=== PATIENT | male | born 1955 | race Hispanic/Latino ===

== ENCOUNTER 2024-02-12 19:04 | Emergency (ER) | payer BC, OTHER, SELFPAY ==
[2024-02-12] MEDS ORDERED: ASPIRIN 81 MG CHEWABLE TABLET ONE (19:46)
[2024-02-12 19:54] LABS: Absolute Eosinophils 0.1 K/uL (0-0.5); Absolute Lymphocytes (CBC) 2.2 K/uL (0.7-4.9); Absolute Monocytes 0.6 K/uL (0.1-1.3); Basophils % 0.4 % (0-1.3); Eosinophils % 1.7 % (0-4.4); Hematocrit 43.4 % (39.6-49.0); Hemoglobin 14.8 g/dL (13.6-17.9); Lymphocytes % 27.5 % (15.3-44.8); MCH 32.4 pg (27.0-35.0); MCHC 34.1 g/dL (32.0-36.0); MCV 94.9 fL (80-100); MPV 8.7 fL (7.6-11.3); Monocytes % 7.3 % (3.3-12.3); Neutrophils % 63.1 % (41.7-73.7); Nucleated Red Blood Cells % 0.1 % (0-0); Platelets 198 thou/uL (152-406); RBC Red Blood Cell Count 4.57 M/uL (4.33-5.43); Red Cell Distribution Width 12.8 % (12.1-15.2)
[2024-02-12 19:57] LABS: PT Prothrombin Time 11.8 SECONDS (9.4-12.5); Protime INR 1.06
[2024-02-12 20:08] LABS: D-Dimer < 0.215 FEUug/mL (0-0.500)
[2024-02-12 20:14] LABS: Albumin 3.9 g/dL (3.4-5.0); Anion Gap 9.9 mEq/L (5.0-15.0); Bilirubin Direct 0.2 mg/dL (0-0.2); Bilirubin Indirect, Calculated 0.4 mg/dL (0.2-0.8); Bilirubin Total 0.6 mg/dL (0.2-1.0); Globulin 4.1 g/dL (2.3-3.5); Magnesium 2.3 mg/dL (1.6-2.4); Potassium 3.9 mEq/L (3.5-5.1); Troponin High Sensitivity 4.1 pg/mL (<58.9)
--- NOTE | 2024-02-12 20:23 | RAD REPORT ---
Procedure: Chest Single View History: sob Comparison: none The lungs appear clear of acute infiltrate. No significant pleural effusion noted. The heart is normal size. IMPRESSION: No acute abnormality is displayed.
--- NOTE | 2024-02-12 22:24 | RAD REPORT ---
Chest Angio History: EXAM: CT CHEST WITH CONTRAST CLINICAL INDICATION: Chest pain TECHNIQUE: CT angiogram images of the chest obtained. 100 cc 370 administered intravenously.. One or more of the following dose reduction techniques were used: Automated exposure control, adjustment of the mA and/or kV according to patient size, and/or iterative reconstruction. 3-Dmip reconstruction performed COMPARISON: No prior exam. FINDINGS: A pulmonary embolus is not seen. No thoracic aortic aneurysm. The pleural effusion not present. No pericardial effusion. Clear lungs IMPRESSION: Negative for a pulmonary embolus
[2024-02-12] MEDS ORDERED: LIDOCAINE VISCOUS 2% 10ML ORAL SOLN ONE (23:00)
[2024-02-12] MEDS ORDERED: MAGNES/ALUMIN/SIMET 30ML UCUP ONE (23:00)
[2024-02-12] MEDS ORDERED: FAMOTIDINE 20 MG/2 ML VIAL IV ONE (23:01)
--- NOTE | 2024-02-12 23:38 | ER ---
Nurse's Notes [facility] Name: Gio Bowie Age: 68 yrs Sex: Male : 1955 Arrival Date: 02/12/2024 Time: 19:04 Bed 6 Private MD: Diagnosis: Chest pain, unspecified Presentation: 02/11 19:16 Chief complaint: Patient states: chest tightness starting two hours ago. Hard to get a tm6 deep breath. Left shoulder in pain. Took 325mg aspirin prior to leaving home. Coronavirus screen: Vaccine status: Patient reports being unvaccinated. Ebola Screen: Patient negative for fever greater than or equal to 101.5 degrees Fahrenheit, and additional compatible Ebola Virus Disease symptoms Patient denies exposure to infectious person. Patient denies travel to an Ebola-affected area in the 21 days before illness onset. No symptoms or risks identified at this time. Initial Sepsis Screen: Does the patient meet any 2 criteria? No. Patient's initial sepsis screen is negative. Does the patient have a suspected source of infection? No. Patient's initial sepsis screen is negative. Risk Assessment: Do you want to hurt yourself or someone else? Patient reports no desire to harm self or others. Onset of symptoms was February 12, 2024 at 17:00. 19:16 Method Of Arrival: Ambulatory tm6 19:16 Acuity: AMIRA 3 tm6 Triage Assessment: 19:19 General: Appears in no apparent distress. Behavior is calm, cooperative. Pain: tm6 Complains of pain in left supraclavicular area and mid-sternal area Pain began 2 hours ago. EENT: No signs and/or symptoms were reported regarding the EENT system. Neuro: Level of Consciousness is awake, alert, obeys commands, Oriented to person, place, time, situation. Cardiovascular: Patient's skin is warm and dry. Rhythm is sinus rhythm Chest pain. Respiratory: Reports shortness of breath Airway is patent Respiratory effort is even, unlabored, Respiratory pattern is regular, symmetrical. GI: No signs and/or symptoms were reported involving the gastrointestinal system. Abdomen is flat, non-distended. : No signs and/or symptoms were reported regarding the genitourinary system. Derm: No signs and/or symptoms reported regarding the dermatologic system. Musculoskeletal: No signs and/or symptoms reported regarding the musculoskeletal system. Historical: - Allergies: 19:19 No Known Allergies; tm6 - PMHx: 19:19 None; tm6 - PSHx: 19:19 None; tm6 - Immunization history:: Client reports having NOT received the Covid vaccine. - Infectious Disease History:: Denies. - Social history:: Smoking status: Reported history of juuling and/or vaping. Screenin:34 [facility] ED Fall Risk Assessment (Adult) History of falling in the last 3 months, al5 including since admission No falls in past 3 months (0 pts) Confusion or Disorientation No (0 pts) Intoxicated or Sedated No (0 pts) Impaired Gait No (0 pts) Mobility Assist Device Used No (0 pt) Altered Elimination No (0 pt) Score/Fall Risk Level 0 - 2 = Low Risk Oriented to surroundings, Maintained a safe environment, Hourly rounding (assess needs \T\ fall precautionary measures) done. Abuse screen: Denies threats or abuse. Denies injuries from another. Nutritional screening: No deficits noted. Tuberculosis screening: No symptoms or risk factors identified. Assessment: 19:35 General: Appears in no apparent distress. Behavior is calm, cooperative. Pain: Denies al5 pain. Pain radiates to left supraclavicular area, neck Pain currently is 1 out of 10 on a pain scale. Neuro: Level of Consciousness is awake, alert, obeys commands, Oriented to person, place, time, situation. Cardiovascular: Reports chest tightness initially, denies it at this time. Respiratory: Reports shortness of breath initally, denies shortness of breath now. Airway is patent Respiratory effort is even, unlabored, Respiratory pattern is regular, symmetrical. GI: No signs and/or symptoms were reported involving the gastrointestinal system. : No signs and/or symptoms were reported regarding the genitourinary system. EENT: No signs and/or symptoms were reported regarding the EENT system. Derm: Skin is intact, Skin is pink, warm \T\ dry. normal. Musculoskeletal: No signs and/or symptoms reported regarding the musculoskeletal system. 20:50 Reassessment: Patient appears in no apparent distress at this time. No changes from al5 previously documented assessment. Patient and/or family updated on plan of care and expected duration. Pain level reassessed. Patient is alert, oriented x 3, equal unlabored respirations, skin warm/dry/pink. 21:55 Reassessment: Patient appears in no apparent distress at this time. No changes from al5 previously documented assessment. Patient and/or family updated on plan of care and expected duration. Pain level reassessed. Patient is alert, oriented x 3, equal unlabored respirations, skin warm/dry/pink. denies pain at this time.. 22:50 Reassessment: Patient and/or family updated on plan of care and expected duration. Pain ha1 level reassessed. Patient is alert, oriented x 3, equal unlabored respirations, skin warm/dry/pink. 23:54 Reassessment: Patient and/or family updated on plan of care and expected duration. Pain ha1 level reassessed. Patient is alert, oriented x 3, equal unlabored respirations, skin warm/dry/pink. Patient denies pain at this time. Patient states feeling better. Patient states symptoms have improved. Vital Signs: 19:16 BP 156 / 73; Pulse 65; Resp 18; Temp 99(O); Pulse Ox 100% on R/A; Weight 63.5 kg; tm6 Height 5 ft. 11 in. ; Pain 5/10; 19:36 BP 176 / 98; Pulse 79; Resp 16; Pulse Ox 99% on R/A; al5 20:12 BP 144 / 76; Pulse 70; Resp 16; Pulse Ox 99% ; Pain 2/10; dd2 20:55 BP 131 / 79; Pulse 66; Resp 17 S; Pulse Ox 99% on R/A; ha1 21:30 BP 143 / 84; Pulse 62; Resp 16; Pulse Ox 100% on R/A; al5 22:50 BP 140 / 90; Pulse 68; Resp 17 S; Pulse Ox 100% on R/A; ha1 23:54 BP 132 / 74; Pulse 75; Resp 17 S; Temp 97.8(O); Pulse Ox 98% on R/A; ha1 19:16 Body Mass Index 19.53 (63.50 kg, 180.34 cm) tm6 19:16 Pain Scale: Adult tm6 20:12 Pain Scale: Adult dd2 ED Course: 19:07 Patient arrived in ED. gm2 19:16 EKG completed in triage. Results shown to MD. tm6 19:16 Arm band placed on right wrist. tm6 19:16 Patient has correct armband on for positive identification. Bed in low position. Call al5 light in reach. Side rails up X 1. Provided Education on: processes and procedures. Client placed on continuous cardiac and pulse oximetry monitoring. NIBP monitoring applied. senior software engineering manager on. 19:19 Triage completed. tm6 19:24 Stanislaw Cornelius PA is PHCP. cp 19:24 Stanislaw Hubbard MD is Attending Physician. cp 19:34 Darline Lee, ALEX is Primary Nurse. al5 19:35 No provider procedures requiring assistance completed. Inserted saline lock: 20 gauge al5 in right antecubital area, using aseptic technique. Patient maintains SpO2 saturation greater than 95% on room air. 20:07 XRAY Chest (1 view) In Process Unspecified. EDMS 22:01 CT Chest Angio In Process Unspecified. EDMS 23:05 Troponin HS Sent. ha1 23:37 Wai Pena MD is Referral Physician. cp 23:57 IV discontinued, intact, bleeding controlled, No redness/swelling at site. Pressure ha1 dressing applied. Administered Medications: 19:49 Not Given (it was administered at home 1 hour agoo): aspirinchewable tablet 324 mg PO ha1 once; 81 mg tablets x 4 23:06 Drug: Famotidine IVP 20 mg IVP once; dilute with 10 mL 0.9% NaCl; give over 2 minutes ha1 Route: IVP; Site: right antecubital; 23:30 Follow up: Response: No adverse reaction; Marked relief of symptoms ha1 23:06 Drug: GI Cocktail without - (Maalox PO 30 ml, Lidocaine Mucous Membrane 2 % 15 ha1 ml) PO once Route: PO; 23:30 Follow up: Response: No adverse reaction; Marked relief of symptoms ha1 Medication: 19:35 VIS not applicable for this client. al5 Outcome: 23:38 Discharge ordered by . cp 23:57 Discharged to home ambulatory, with family, ha1 23:57 Condition: stable 23:57 Discharge instructions given to patient, family, Instructed on discharge instructions, follow up and referral plans. medication usage, Demonstrated understanding of instructions, follow-up care, medications, Prescriptions given X 1, 23:57 Patient left the ED. ha1 Signatures: Dispatcher [employer] EDMS Page, GINNY Dover cp, Heidy, RN RN ha1 Priyanka Vaughn gm2 Yi Lipscomb, RN RN tm6 Darline Lee RN RN al5 CALEB REVELES RN RN dd2
--- NOTE | 2024-02-12 23:38 | EDPHYS ---
Physician Documentation [facility] Name: Gio Bowie Age: 68 yrs Sex: Male : 1955 Arrival Date: 02/12/2024 Time: 19:04 Bed 6 Private MD: ED Physician Stanislaw Hubbard HPI: 02/11 19:30 This 68 yrs old Male presents to ER via Ambulatory with complaints of Chest cp Tightness. 19:30 Onset: 2 hour(s) ago. The chest pain is described as discomfort. Duration: The patient cp or guardian reports a single episode, markedly improved. 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 cp Historical: - Allergies: 19:19 No Known Allergies; tm6 - PMHx: 19:19 None; tm6 - PSHx: 19:19 None; tm6 - Immunization history:: Client reports having NOT received the Covid vaccine. - Infectious Disease History:: Denies. - Social history:: Smoking status: Reported history of juuling and/or vaping. ROS: 19:30 Constitutional: Negative for body aches, chills, fever, poor PO intake, cp 19:30 Eyes: Negative for injury, pain, redness, and discharge, cp 19:30 Respiratory: Negative for cough, shortness of breath, wheezing, 19:30 Abdomen/GI: Negative for abdominal pain, vomiting, diarrhea, constipation, Exam: 19:30 ECG was reviewed by the Attending Physician. cp 19:35 Constitutional: The patient appears in no acute distress, alert, awake, cp non-diaphoretic, non-toxic, well developed, well nourished, 19:35 Head/Face: Normocephalic, atraumatic. cp 19:35 Eyes: Periorbital structures: appear normal, Conjunctiva: normal, no exudate, no injection, Sclera: no appreciated abnormality, Lids and lashes: appear normal, bilaterally, 19:35 ENT: External ear(s): are unremarkable, Nose: is normal, Mouth: Lips: moist, Oral mucosa: moist, Posterior pharynx: Airway: no evidence of obstruction, patent, 19:35 Neck: ROM/movement: pain, is not appreciated, limited range of motion, is not appreciated, Meningeal signs: are not present, 19:35 Chest/axilla: Inspection: normal, 19:35 Cardiovascular: Rate: normal, Rhythm: regular, Edema: is not appreciated, JVD: is not appreciated, 19:35 Respiratory: the patient does not display signs of respiratory distress, Respirations: normal, no use of accessory muscles, no retractions, labored breathing, is not present, Breath sounds: are clear throughout, no decreased breath sounds, no stridor, no wheezing, 19:35 Abdomen/GI: Inspection: abdomen appears normal, Palpation: abdomen is soft and non-tender, in all quadrants, 19:35 Back: pain, is absent, ROM is normal, 19:35 Neuro: Orientation: to person, place \T\ time. Mentation: is normal, Motor: moves all fours, strength is normal, Sensation: is normal, 23:02 ECG was reviewed by the Attending Physician. Vital Signs: 19:16 BP 156 / 73; Pulse 65; Resp 18; Temp 99(O); Pulse Ox 100% on R/A; Weight 63.5 kg; tm6 Height 5 ft. 11 in. ; Pain 5/10; 19:36 BP 176 / 98; Pulse 79; Resp 16; Pulse Ox 99% on R/A; al5 20:12 BP 144 / 76; Pulse 70; Resp 16; Pulse Ox 99% ; Pain 2/10; dd2 20:55 BP 131 / 79; Pulse 66; Resp 17 S; Pulse Ox 99% on R/A; ha1 21:30 BP 143 / 84; Pulse 62; Resp 16; Pulse Ox 100% on R/A; al5 22:50 BP 140 / 90; Pulse 68; Resp 17 S; Pulse Ox 100% on R/A; ha1 23:54 BP 132 / 74; Pulse 75; Resp 17 S; Temp 97.8(O); Pulse Ox 98% on R/A; ha1 19:16 Body Mass Index 19.53 (63.50 kg, 180.34 cm) tm6 19:16 Pain Scale: Adult tm6 20:12 Pain Scale: Adult dd2 MDM: 19:24 Patient medically screened. cp 23:37 Data reviewed: vital signs, nurses notes, lab test result(s), EKG, radiologic studies, cp CT scan, plain films. 23:37 Differential diagnosis: acute myocardial infarction, gastroesophageal reflux disease cp (GERD), pleurisy, pneumonia, pneumothorax, pulmonary embolus, stable angina, thoracic aortic disection, unstable angina. The patient was given aspirin in the Emergency Department. Consideration of Admission/Observation Escalation of care including admission/observation considered. I considered the following discharge prescriptions or medication management in the emergency department Medications were administered in the Emergency Department. See MAR. Independent interpretation of the following test(s) in the Emergency Department EKG: See my EKG interpretation above. Counseling: I had a detailed discussion with the patient and/or guardian regarding the historical points, exam findings, and any diagnostic results supporting the discharge/admit diagnosis, lab results, radiology results, the need for outpatient follow up, a reefer truck driver, to return to the emergency department if symptoms worsen or persist or if there are any questions or concerns that arise at home. Response to treatment: the patient's symptoms have markedly improved after treatment, and as a result, I will discharge patient. 02/11 19:42 Order name: Basic Metabolic Panel; Complete Time: 20:32 cp 02/11 20:32 Interpretation: Normal except: GLUC 148; BUN 22; GFR 86. cp 02/11 19:42 Order name: CBC with Diff; Complete Time: 20:32 cp 18 19:42 Order name: LFT's; Complete Time: 20:32 cp 18 20:33 Interpretation: Normal except: AST 118; ALT 174; GLOB 4.1; A/G 1.0. cp 02/11 19:42 Order name: Magnesium; Complete Time: 20:32 cp 18 19:42 Order name: NT PRO-BNP; Complete Time: 20:32 cp 18 19:42 Order name: PT-INR; Complete Time: 20:32 cp 18 19:42 Order name: Troponin HS; Complete Time: 20:32 cp 18 20:33 Interpretation: Troponin HS 4.1; Reviewed. cp 02/11 19:42 Order name: D-Dimer; Complete Time: 20:32 cp 18 22:29 Order name: Troponin HS; Complete Time: 23:35 cp 18 19:42 Order name: XRAY Chest (1 view); Complete Time: 20:32 cp 18 21:05 Order name: CT Chest Angio; Complete Time: 22:28 cp 02/11 19:42 Order name: EKG; Complete Time: 19:43 cp 02/11 19:42 Order name: Cardiac monitoring; Complete Time: 19:52 cp 02/11 19:42 Order name: EKG - Nurse/Tech; Complete Time: 19:52 cp 02/11 19:42 Order name: IV Saline Lock; Complete Time: 19:48 cp 02/11 19:42 Order name: Labs collected and sent; Complete Time: 19:48 cp 02/11 19:42 Order name: O2 Per Protocol; Complete Time: 19:48 cp 02/11 19:42 Order name: O2 Sat Monitoring; Complete Time: 19:48 cp 02/11 22:29 Order name: EKG - Nurse/Tech; Complete Time: 23:05 cp EC:30 Rate is 66 beats/min. Rhythm is regular. FL interval is normal. QRS interval is normal. cp QT interval is normal. T waves are Inverted in lead aVR. Interpreted by me. Reviewed by me. 23:02 Rate is 68 beats/min. Rhythm is regular. FL interval is normal. QRS interval is normal. cp QT interval is normal. T waves are Inverted in lead aVR. Interpreted by me. Reviewed by me. Administered Medications: 19:49 Not Given (it was administered at home 1 hour agoo): aspirinchewable tablet 324 mg PO ha1 once; 81 mg tablets x 4 23:06 Drug: Famotidine IVP 20 mg IVP once; dilute with 10 mL 0.9% NaCl; give over 2 minutes ha1 Route: IVP; Site: right antecubital; 23:30 Follow up: Response: No adverse reaction; Marked relief of symptoms ha1 23:06 Drug: GI Cocktail without - (Maalox PO 30 ml, Lidocaine Mucous Membrane 2 % 15 ha1 ml) PO once Route: PO; 23:30 Follow up: Response: No adverse reaction; Marked relief of symptoms ha1 Disposition Summary: 02/12/24 23:38 Discharge Ordered Notes: Location: Home cp Problem: new cp Symptoms: have improved cp Condition: Stable cp Diagnosis - Chest pain, unspecified cp Followup: cp - With: Wai Pena MD - When: 2 - 3 days - Reason: Recheck today's complaints Discharge Instructions: - Discharge Summary Sheet cp - Nonspecific Chest Pain, Adult cp - Aspirin and Your Heart cp Forms: - Medication Reconciliation Form cp - Antibiotic Education cp - Prescription Opioid Use cp - Patient Portal Instructions cp - Leadership Thank You Letter cp - Work release form cp4 Prescriptions: - Pepcid 20 mg Oral Tablet - take 1 tablet ORAL route every 12 hours for 10 days; 20 tablet; Refills: 0, cp Product Selection Permitted Signatures: Dispatcher [employer] EDMS Stanislaw Cornelius PA PA cp Ayala, Heidy RN RN ha1 Yi Lipscomb RN RN tm6 Corrections: (The following items were deleted from the chart) 21:05 21:05 Chest Angio+[id number].BRZ ordered. EDMS EDMS
[2024-02-13 01:07] VITALS: BP 132/74; TEMP 97.8; O2SAT 98
--- NOTE | 2024-02-13 12:15 | EKG ---
Test Date: 2024-02-12 Test Time: 22:55:16 Corporate Statistical Financial Analyst: TYREE MEASUREMENT RESULTS: Intervals: Rate: 68 W[place]: 154 QRSD: 80 QT: 376 QTc: 399 [place]: P: 66 W[place]: 154 QRS: 84 T: 58 INTERPRETIVE STATEMENTS: Normal sinus rhythm Normal ECG Compared to ECG 02/12/2024 19:15:56 No significant changes Electronically Signed On 02-13-24 12:14:27 CDT by Fernandez Hartley
--- NOTE | 2024-02-13 12:16 | EKG ---
Test Date: 2024-02-12 Test Time: 19:15:56 Medical Cash Poster: ALTAF MEASUREMENT RESULTS: Intervals: Rate: 66 [place]: 164 QRSD: 88 QT: 382 QTc: 400 [place]: P: 76 [place]: 164 QRS: 87 T: 64 INTERPRETIVE STATEMENTS: Normal sinus rhythm Normal ECG No previous ECG available for comparison Electronically Signed On 02-13-24 12:14:56 CDT by Fernandez Hartley
== END 2024-02-12 23:57 | disposition home or self-care (01) ==
LOC: ER 19:04
DX: R07.89 Other chest pain (principal)
CPT/HCPCS: 36415; 71045; 71275; 80048; 80076; 83735; 83880; 84484; 85025; 85379; 85610; 93005; Q9967